=== PATIENT | male | born 1955 | race Caucasian/White ===

== ENCOUNTER 2017-05-07 11:40 | Emergency (ER) | payer OTHER, MEDICARE ==
[~2017-05-07 11:40] MED LIST: ASPI81TA82 PO; DIAZ5 PO; IBUP800T23 PO; LORTA5 PO; METH500T3 PO; MULT-65
[2017-05-07 11:49] VITALS: BP 151/81; PULSE 71; RESP 18; TEMP 98.6; O2SAT 99
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
[2017-05-07] MEDS ORDERED: NORC5TAB PO (15:01)
== END 2017-05-07 15:15 | disposition home or self-care (01) ==
LOC: NEDAMB 11:40
DX: S42.254A Nondisplaced fracture of greater tuberosity of right humerus, initial encounter for closed fracture (principal); V29.9XXA Motorcycle rider (driver) (passenger) injured in unspecified traffic accident, initial encounter
CPT/HCPCS: 29240; 73030